=== PATIENT | female | born 1950 | race Hispanic/Latino ===

== ENCOUNTER 2020-01-18 06:59 | Observation (INO) | payer MEDICARE, OTHER ==
--- NOTE | 2020-01-14 10:15 | NUR ---
Checked patient's temperature via skin probe: 97.8F. Patient denies being out of the country or out of state in the last 14 days. Patient denies being around anyone who has been out of the country or out of state in the last 14 days. Patient denies being around anyone who has been exposed or diagnosed in the last 14 days. Patient denies new onset fever, cough, or shortness of breath in the last 14 days.
[2020-01-14 11:04] LABS: BASOPHILS # (AUTO) 0.1 (0.0-0.1); BASOPHILS % 0.7 % (0.0-1.0); EOSINOPHILS # (AUTO) 0.2 (0.0-0.4); EOSINOPHILS % 2.2 % (0.0-6.0); HEMATOCRIT 43.2 % (34.2-44.1); HEMOGLOBIN 14.1 g/dL (12.0-16.0); LYMPHOCYTES # (AUTO) 2.2 (1.0-3.2); LYMPHOCYTES % 29.7 % (18.0-39.1); MEAN CORPUSCULAR HEMOGLOBIN 29.3 pg (28-32); MEAN CORPUSCULAR HGB CONC 32.6 g/dL (31-35); MEAN CORPUSCULAR VOLUME 89.8 fL (81-99); MONOCYTES # (AUTO) 0.6 (0.2-0.8); MONOCYTES % 7.5 % (4.4-11.3); NEUTROPHILS # (AUTO) 4.4 (2.1-6.9); NEUTROPHILS % 59.5 % (38.7-80.0); PLATELET COUNT 263 x10e3/uL (140-360); RED BLOOD COUNT 4.81 x10e6/uL (3.6-5.1); RED CELL DISTRIBUTION WIDTH 13.2 % (11.7-14.4)
[2020-01-14 11:23] LABS: INR 0.93
[2020-01-14 11:30] LABS: ALBUMIN 3.7 g/dL (3.5-5.0); ALBUMIN/GLOBULIN RATIO 0.9 (0.8-2.0); ANION GAP 12.9 mmol/L (8-16); CALCIUM 9.8 mg/dL (8.4-10.2); CREATININE, SERUM 1.02 mg/dL (0.57-1.11); POTASSIUM 4.9 mmol/L (3.5-5.1)
[2020-01-18] VITALS (12 sets, daily range): BP systolic 111–163; BP diastolic 64–92
[~2020-01-18] VITALS: Ht 157.5 cm; Wt 58.5 kg
[~2020-01-18 06:59] MED LIST: CLOPIDOGREL75 MG PO; GLIMEPIRIDE2 MG PO; HYZAAR 50-12.51 EACH PO; LOVASTATIN40 MG PO; METFORMIN HCL500 MG PO; METOPROLOL TART25 MG PO; NITROGLYCERIN0.4 MG SL
[2020-01-18] MEDS ORDERED: VERAPAMIL HCL 2.5 MG/ML 2 ML VIAL ONE (09:25)
[2020-01-18] MEDS ORDERED: MIDAZOLAM HCL 2 MG/2 ML VIAL ONE (09:25)
[2020-01-18] MEDS ORDERED: FENTANYL CITRATE/PF 100MCG/2 ML INJ ONE (09:25)
[2020-01-18] MEDS ORDERED: LIDOCAINE HCL 2% LOCAL 20 ML VIAL ONE (09:26)
[2020-01-18] MEDS ORDERED: HEPARIN SOD/SOD CHLORIDE 2,000 ML ONE (09:27)
[2020-01-18] MEDS ORDERED: IOPAMIDOL 370 MG/ML 200 ML INFUS..BTL INJ ONE (09:27)
[2020-01-18] MEDS ORDERED: SODIUM CHLORIDE 0.9% 1000ML 1,000 ML ONE (09:27)
[2020-01-18] MEDS ORDERED: CLOPIDOGREL BISULFATE 75 MG TAB ONE (10:57)
--- NOTE | 2020-01-18 13:55 | NUR ---
Spoke with Shannan in admissions and notified her that patient needed to be placed in virtual bed. Shannan in admissions verbalized understanding.
--- NOTE | 2020-01-18 14:13 | NUR ---
pt arrived to room 115 from director of laboratory operations, pt awake, alert, oriented X3. no signs of distress. no complaints at this time.
[2020-01-18] MEDS ORDERED: NITROGLYCERIN 0.4 MG SUBL SL PRN (14:30)
[2020-01-18] MEDS: GLIMEPIRIDE 2 MG TAB PO SCH (17:34)
--- NOTE | 2020-01-18 19:34 | NUR ---
RECEIVED REPORT FROM PREVIOUS NURSE. PATIENT IN BED. CALL LIGHT WITHIN REACH. PATIENT IN NO DISTRESS
[2020-01-18] MEDS ORDERED: SIMVASTATIN 20 MG TAB PO SCH (21:00)
[2020-01-18] MEDS ORDERED: SIMVASTATIN 40 MG TAB PO SCH (21:00)
[2020-01-19 00:03] VITALS: BP 110/64
[2020-01-19 03:56] VITALS: BP 160/73
--- NOTE | 2020-01-19 07:08 | NUR ---
GAVE REPORT TO ONCOMING NURSE. CALL LIGHT WITHIN REACH. PATIENT IN BED. PATIENT IN NO PAIN OR DISTRESS.
--- NOTE | 2020-01-19 07:09 | NUR ---
change of shift report received from PM nurse. pt awake, oriented X3, no signs of distress. in stable condition. will continue to monitor.
[2020-01-19 07:30] VITALS: BP 123/70
[2020-01-19 07:52] VITALS: BP 123/70
[2020-01-19] MEDS: GLIMEPIRIDE 2 MG TAB PO SCH (08:59)
[2020-01-19] MEDS ORDERED: HYDROCHLOROTHIAZIDE PO SCH (09:00)
[2020-01-19] MEDS ORDERED: METOPROLOL TARTRATE 25 MG TAB PO SCH (09:00)
[2020-01-19] MEDS ORDERED: LOSARTAN POTASSIUM 25 MG TAB PO SCH (09:00)
[2020-01-19] MEDS ORDERED: CLOPIDOGREL BISULFATE 75 MG TAB PO SCH (09:00)
[2020-01-19] MEDS ORDERED: HYDROCHLOROTHIAZIDE 25 MG TAB PO SCH (09:00)
[2020-01-19] MEDS ORDERED: LOSARTAN PO SCH (09:00)
--- NOTE | 2020-01-19 10:15 | NUR ---
Pt. expressed no spiritual or emotional concerns at this time. Provided hospitality and information on how to reach admissions gate attendant, if needed. CORBY CROOK [facility] O: [phone]
[2020-01-19 12:16] VITALS: BP 114/64
[2020-01-20] MEDS ORDERED: METFORMIN HCL 500 MG TAB PO SCH ×2 (08:00→09:45)
--- NOTE | 2020-03-29 00:52 | Operative Report ---
DATE OF PROCEDURE: 01/18/2020 SURGEON: Javier Fernandez MD CARDIOLOGY CATHETERIZATION REPORT INDICATION FOR PROCEDURE: Angina, coronary artery disease. PREPROCEDURE ASSESSMENT: The risks, benefits, and alternatives of treatment were explained to the patient prior to the procedure. The patient was deemed to be an appropriate candidate for moderate sedation. Please see informed consent in the medical records. MEDICATIONS: Please see nursing notes for medications administered throughout the procedure. PROCEDURES PERFORMED: 1. Coronary angiography. 2. Left heart catheterization. 3. PCI to the RCA using drug-eluting stent x1. PROCEDURE IN DETAIL: The patient was brought to the cardiac catheterization laboratory in a fasting state. Right wrist was prepped and draped in a sterile fashion. A 6-Icelandic Slender sheath was inserted in the right radial artery using modified Seldinger technique. Coronary angiography was performed using a 5-Icelandic Vero radial catheter. Left heart catheterization was performed using a pigtail catheter. This demonstrated patent LAD and OM stents from previous catheterization and 80% to 90% diffuse stenosis of the mid and distal RCA. RCA was a small vessel. Given the patient's anginal symptoms, we decided to proceed with PCI. For PCI of the RCA, a JR4 6-Icelandic guide catheter was used, which did not provide adequate support, so we had to use a Guidezilla 6-Icelandic catheter for additional support. Lesion was wired using a run-through wire, pre-dilated using Emerge 2.0 x 20 mm balloon and stenting was performed using a 2.25 x 38 mm Resolute Leopoldo stent. This resulted in excellent angiographic result without residual dissection, thrombus, or spasm. The patient tolerated the procedure well. There were no immediate complications. ACT near 300 was maintained throughout the procedure. Loading dose was aspirin and Plavix was given at the end of the procedure. Access site was closed using a TR band device. SIGNIFICANT FINDINGS: Codominant coronary systems. Patent stent in the mid LAD and OM1, 80% to 90% diffuse stenosis of a small mid RCA, status post successful PCI with FARZANA x1. GRAFTS AND IMPLANTS: Drug-eluting stent x1. SPECIMEN REMOVED: None. ESTIMATED BLOOD LOSS: 20 mL. COMPLICATIONS: None. FINAL RECOMMENDATIONS: 1. Continue aspirin and Plavix. 2. Follow up in clinic 2 weeks post discharge. MD BONY Cervantes/NIKAL /[id number]
== END 2020-01-19 17:00 | disposition home or self-care (01) ==
LOC: CATH LAB 06:59 → CATH LAB V 11:52 → MED/SURG 15:09
PROVIDERS: ADMIT Internal Medicine; ATTEND Internal Medicine
DX: I25.119 Atherosclerotic heart disease of native coronary artery with unspecified angina pectoris (principal); Z01.812 Encounter for preprocedural laboratory examination
CPT/HCPCS: 93458; C9600; 36415; 80053; 82948; 85025; 85610; 92928; 99152; 99153; C1725; C1769; C1874; C1887; C1894; G0378; J2001; J2250; J3010; J7030; Q9967